=== PATIENT | male | born 1965 | race Caucasian/White ===

== ENCOUNTER 2024-10-25 06:14 | Day surgery (SDC) | payer OTHER, SELFPAY | END 2024-10-25 16:24 | disposition home or self-care (01) | LOC: GI 06:14 | PROVIDERS: ATTENDING PHYSICIAN Internal Medicine | DX: Z12.11 Encounter for screening for malignant neoplasm of colon (principal); K64.8 Other hemorrhoids; K57.30 Diverticulosis of large intestine without perforation or abscess without bleeding; D12.8 Benign neoplasm of rectum; K63.5 Polyp of colon | CPT/HCPCS: 45385; 45380; 88305 ==